=== PATIENT | female | born 1950 | race Caucasian/White ===

== ENCOUNTER → 2022-01-29 15:28 | Outpatient (CLI) | payer MEDICARE, OTHER, SELFPAY ==
[2022-01-29 17:44] LABS: C-Reactive Protein Quant < 0.5 mg/dL (<1.0)
[2022-01-29 17:47] LABS: Add Manual Diff / Slide Review NO; Basophils Absolute Auto 0 /uL (0-100); Basophils Percent Auto 0.6 % (0-2); Eosinophils Absolute Auto 0 /uL (0-450); Hematocrit 42.3 % (36-46); Hemoglobin 14.7 g/dL (12.0-16.0); Lymphocytes Absolute Auto 1200 /uL (1100-4500); Lymphocytes Percent Auto 23.7 % (25-40); Mean Corpuscular HGB Conc 34.6 % (30-36); Mean Corpuscular Hemoglobin 31.6 PG (26-34); Mean Corpuscular Volume 91.2 fL (80-100); Monocytes Absolute Auto 400 /uL (0-900); Monocytes Percent Auto 9.2 % (3-14); Neutrophils Absolute Auto 3200 /uL (1500-7000); Neutrophils Percent Auto 65.5 % (50-75); Platelet Count 244 X10^3/uL (150-400); Red Blood Cell Count 4.64 X10^6/uL (4.0-5.2); Red Cell Distribution Width 12.8 % (11.6-14.8); White Blood Cell Count 4.9 X10^3/uL (4.5-11.0)
[2022-01-29 18:11] LABS: Hemoglobin A1C% w Est Avg Glu 5.6 % (4.0-6.0)
[2022-01-29 18:14] LABS: Erythrocyte Sedimentation Rate 8 MM/HR (0-20)
[2022-01-29 18:25] LABS: Thyroid Stimulating Hormone 1.37 uIU/mL (0.47-4.68)
[2022-02-02 17:16] LABS: ANA Screen, IFA Negative (.)
== END ==
PROVIDERS: Referring Provider Ophthalmology; Visit Provider Ophthalmology
DX: H50.00 Unspecified esotropia (principal); I10 Essential (primary) hypertension; H53.2 Diplopia
CPT/HCPCS: 36415; 83036; 84443; 85025; 85651; 86038; 86140

== ENCOUNTER → 2022-06-27 13:12 | Outpatient (CLI) | payer MEDICARE, OTHER, SELFPAY | PROVIDERS: Family Provider Physician Assistant; PCP Physician Assistant; Visit Provider Registered Nurse | DX: N39.0 Urinary tract infection, site not specified (principal) | CPT/HCPCS: 87086 ==

== ENCOUNTER → 2022-09-18 13:29 | Outpatient (CLI) | payer MEDICARE, OTHER, SELFPAY ==
--- NOTE | 2022-09-18 13:34 | DI.MG.S_ITS ---
BILATERAL DIGITAL SCREENING MAMMOGRAM 3D/2D WITH CAD: 09/18/2022 CLINICAL: Routine screening. Personal history of left breast cancer. Comparison is made to exams dated: 03/19/2021 mammogram, 02/26/2020 mammogram, and 11/16/2018 mammogram - outside facility. There are scattered areas of fibroglandular density in both breasts (category b / 25%-50% glandular tissue). Current study was also evaluated with a Computer Aided Detection (CAD) system. There are benign post operative findings in the left breast. No significant masses, calcifications, or other findings are seen in either breast. There has been no significant interval change. IMPRESSION: BENIGN There is no mammographic evidence of malignancy. A 1 year screening mammogram is recommended. Based on the Tyrer Cuzick model (a risk assessment model) the patient's lifetime risk is 3.2% and her 10 year risk is 2.2%. According to the ACR, ACS, and NCCN guidelines, an annual breast MRI exam along with mammogram is recommended if the patient's lifetime risk is 20% or greater. This exam was interpreted at Station ID: [id number]. NOTE: For mammograms, a report in lay terms will be sent to the patient. Approximately 15% of breast malignancies will not be visualized mammographically. In the management of a palpable breast mass, a negative mammogram must not discourage biopsy of a clinically suspicious lesion. Electronically Signed By: Obinna paulino/odin:09/18/2022 20:19:32 letter sent: Normal Exam ACR BI-RADS Category 2: Benign Finding(s) 3342F
== END ==
PROVIDERS: Family Provider Physician Assistant; PCP Physician Assistant; Referring Provider Internal Medicine Hematology & Oncology; Visit Provider Internal Medicine Hematology & Oncology
DX: Z12.31 Encounter for screening mammogram for malignant neoplasm of breast (principal); C50.912 Malignant neoplasm of unspecified site of left female breast; Z17.0 Estrogen receptor positive status [ER+]
CPT/HCPCS: 77063; 77067

== ENCOUNTER → 2022-10-06 14:24 | Outpatient (CLI) | payer MEDICARE, OTHER, SELFPAY ==
--- NOTE | 2022-10-06 14:28 | DI.US.S_ITS ---
ULTRASOUND OF LEFT BREAST: 10/06/2022 CLINICAL: Left breast enlargement noticed in August 2022. Comparison is made to exams dated: 09/18/2022 mammogram - [facility], 08/05/2021 localization, 08/05/2021 specimen, 07/02/2021 breast MRI, 05/28/2021 breast MRI, and 05/22/2021 ultrasound biopsy - outside facility. Color flow and real-time ultrasound of the left breast were performed. House scale images of the real-time examination were reviewed. No significant abnormalities were seen sonographically in the left breast. No abnormal mass or fluid collections. Expected post surgical changes along the lateral aspect of the left breast at site of prior partial mastectomy. IMPRESSION: BENIGN There is no sonographic evidence of malignancy. There is no abnormality seen in the left breast to correspond with the area of clinical concern, however, recommend clinical follow up for persistent or worsening symptoms, or development of any clinically suspicious findings. A 1 year screening mammogram is recommended. Future imaging is recommended as follows: 09/19/2023 screening mammogram. Findings and recommendations were conveyed to the patient during today's evaluation. This exam was interpreted at Station ID: [id number]. Electronically Signed By: Obinna Anton M.D. aty/:10/06/2022 15:21:51 letter sent: Clinical Evaluation Ultrasound BI-RADS: 2 Benign
== END ==
PROVIDERS: Family Provider Physician Assistant; PCP Physician Assistant; Referring Provider Internal Medicine Hematology & Oncology; Visit Provider Internal Medicine Hematology & Oncology
DX: C50.912 Malignant neoplasm of unspecified site of left female breast (principal); N62 Hypertrophy of breast; Z17.0 Estrogen receptor positive status [ER+]
CPT/HCPCS: 76642

== ENCOUNTER → 2023-05-19 14:23 | Outpatient (CLI) | payer MEDICARE, OTHER, SELFPAY ==
--- NOTE | 2023-05-19 14:25 | DI.RAD.S_ITS ---
PROCEDURE: XR FINGER RT MIN 2V INDICATIONS: Right thumb pain, possible bite on thumb TECHNIQUE: AP hand, 2 views of the 1st finger(s) acquired. COMPARISON: None. FINDINGS: Bones: No fractures or dislocations. No suspicious bony lesions. Soft tissues: No suspicious soft tissue calcifications. IMPRESSION: Osteopenia without fracture Approved by: Corwin Carpenter M.D. on 05/19/2023 at 19:59
== END ==
PROVIDERS: Family Provider Physician Assistant; Referring Provider Nurse Practitioner Family; Visit Provider Nurse Practitioner Family
DX: M85.841 Other specified disorders of bone density and structure, right hand (principal); M79.644 Pain in right finger(s)
CPT/HCPCS: 73140

== ENCOUNTER 2023-07-23 13:42 | Emergency (ER) | payer MEDICARE, OTHER, SELFPAY ==
[2023-07-23 13:47] VITALS: BP 130/65; PULSE 84; RESP 18; TEMP 37.2; O2SAT 94; BMI 24.0
--- NOTE | 2023-07-23 13:56 | ED_ITS ---
HPI - Fall General Chief Complaint: Fall Stated Complaint: sent by wi/fall Time Seen by Provider: 07/23/23 13:55 Source: patient Mode of arrival: Ambulatory History of Present Illness HPI Narrative: This is a 72-year-old female presents to the emergency department due to a mechanical ground level fall 3 days ago. She states that she was walking along the floor when she was stuck and she landed falling to her knees hand front. She states that he was mild bilateral knee pain, bilateral elbow pain, left rib pain, and mid back pain. She is not on blood thinners. She would not hit lose conscious but does state that she did hit her head and feels a little ?dizzy?. She denies any abdominal pain, denies fevers, shortness of breath, chest pain, or any other concerning signs or symptoms. Related Data Home Medications Medication Instructions Recorded Confirmed cholecalciferol (vitamin D3) 125 125 mcg PO DAILY 05/04/22 05/19/23 mcg (5,000 unit) tablet (Vitamin D3) clindamycin phosphate 1 % topical 1 applic topical DAILY 05/04/22 05/19/23 gel ibandronate 150 mg tablet 150 mg PO QMONTH 05/04/22 05/19/23 levothyroxine 50 mcg tablet 50 mcg PO DAILY 05/04/22 05/19/23 loratadine 10 mg tablet 10 mg PO DAILY 05/04/22 05/19/23 multivitamin 1 tab PO DAILY 05/04/22 05/19/23 ascorbic acid (vitamin C) 1,000 mg 1,000 mg PO DAILY 11/02/22 05/19/23 tablet (Vitamin C) calcium 1,000 mg DAILY 11/02/22 05/19/23 Previous Rx's Medication Instructions Recorded letrozole 2.5 mg tablet 2.5 mg PO DAILY #90 tabs 01/04/23 Allergies Allergy/AdvReac Type Severity Reaction Status Date / Time epinephrine Allergy Anaphylaxis Verified 07/23/23 13:53 anastrozole AdvReac Headache Verified 07/23/23 13:53 interferon beta-1b AdvReac Verified 07/23/23 13:53 [From Betaseron] iodamide AdvReac Rash Verified 07/23/23 13:53 iodine AdvReac Rash Verified 07/23/23 13:53 omeprazole AdvReac Rash Verified 07/23/23 13:53 soy AdvReac Fatigued Verified 07/23/23 13:53 Review of Systems Review of Systems Narrative: GENERAL: Denies chills, fatigue, malaise, fever, sweats. HEENT: Denies sinus pain, ear pain, sore throat, difficulty swallowing, dizziness. RESPIRATORY: Denies dyspnea, cough, wheezing, hemoptysis, sputum. CARDIOVASCULAR: Denies chest pain, palpitations, orthopnea, edema, GASTROINTESTINAL: Denies nausea, vomiting, abdominal pain, diarrhea, constipation, melena. : Denies dysuria, frequency, incontinence, hematuria, urinary retention. MUSCULOSKELETAL: Midthoracic back pain, left rib pain, Bilateral knee and elbow pain, otherwise denies weakness, joint pain, or bony pain SKIN: Denies rash, skin lesions, or other NEUROLOGIC: Denies weakness, headache, numbness, change in speech, confusion, seizures, incoordination. PSYCHIATRIC: No concerning psychosocial issues. 12 point review of systems is negative except for those stated above Patient History Medical History HLD (hyperlipidemia) Multiple sclerosis Osteopoikilosis Subclinical hypothyroidism Surgical History History of hysterectomy Family History Brother Colon cancer Social History Smoking Status: Former smoker alcohol intake: former (5 glasses of wine per week) substance use type: does not use Smoking Status: Former smoker alcohol intake frequency: 0-2 drinks per day Substance Use Type: does not use Exam Narrative Exam Narrative: GENERAL: Well-developed patient, in mild distress. HEAD: Atraumatic. Normocephalic. EYES: Pupils equal round and reactive. Extraocular motions intact. No scleral icterus. No injection or drainage. ENT: Nose without bleeding, purulent drainage. Throat without erythema, tonsillar hypertrophy or exudate. Airway patent. NECK: Trachea midline. Mild tenderness to palpation upper thoracic in cervical spine. CARDIOVASCULAR: Regular rate and rhythm without murmurs, gallops, or rubs. RESPIRATORY: Clear to auscultation. Breath sounds equal bilaterally. No wheezes, rales, or rhonchi. GASTROINTESTINAL: Abdomen soft, non-tender, nondistended. EXTREMITIES: No tenderness to palpation to the bilateral elbows or knees no ecchymosis noted. She did have pain with palpation to the left ribs. BACK: Nontender without deformity or crepitance. No flank tenderness. NEURO: AOx3. Cranial nerves 2-12 intact. SKIN: No rash or erythema of visible areas Initial Vital Signs Initial Vital Signs: Vital Signs Temperature 99.0 F 07/23/23 13:47 Pulse Rate 84 07/23/23 13:47 Respiratory Rate 18 07/23/23 13:47 Blood Pressure 130/65 07/23/23 13:47 Pulse Oximetry 94 07/23/23 13:47 Oxygen Delivery Method Room Air 07/23/23 13:47 Course Orders Ordered: ED Orders 07/23/23 14:07 CT cervical spine wo con Stat CT head/brain wo con Stat XR ribs LT min 3V w CXR1V Stat XR thoracic spine 3V Stat Vital Signs Vital signs: Vital Signs - 8 hr 07/23/23 13:47 07/23/23 14:05 07/23/23 14:05 Temperature 99.0 F Pulse Rate 84 79 Respiratory Rate 18 Blood Pressure 130/65 149/71 H Pulse Oximetry 94 95 Oxygen Delivery Method Room Air Room Air 07/23/23 14:40 07/23/23 15:00 07/23/23 15:00 Temperature Pulse Rate 72 68 Respiratory Rate Blood Pressure 136/71 Pulse Oximetry 93 94 Oxygen Delivery Method Room Air MDM - Fall Imaging Data CT - cervical spine: Radiologist's Impression: Close Cervical Spine CT (Signed) Bianca Perezic - 07/23/[address] 07/23/23 Launch?[place] [address] CT Scan Report Signed Patient: Brittany Stephens MR#: [id number] : 1950 Acct:[id number] Age/Sex: 72 / F Date of Service: 07/23/23 Loc: ED Accession Number: [id number] Procedure: CT cervical spine wo con Ordering Provider: Elliott Almeida P.A-C PROCEDURE: CT CERVICAL SPINE WO CON INDICATIONS: C spine pain after fall TECHNIQUE: Noncontrast 3 mm thick sections acquired from the skull base to the T4 level. Sagittal and coronal reformats were then constructed. For radiation dose reduction, the following was used: automated exposure control, adjustment of mA and/or kV according to patient size. COMPARISON: None. FINDINGS: Image quality: Excellent. Bones: No fractures or dislocations. Visualized superior ribs are intact. Soft tissues: Prevertebral soft tissues are normal in thickness. No paravertebral hematomas. No apical pneumothoraces. IMPRESSION: No acute cervical fracture or dislocation. Dictated by: Jimmy Perez M.D. on 07/23/2023 at 14:30 Approved by: Jimmy Perez M.D. on 07/23/2023 at 14:31 CT scan - head: Radiologist's Impression: [address] [address] [address] Scan Report Signed Patient: Brittany Stephens MR#: [id number] : 1950 Acct:[id number] Age/Sex: 72 / F Date of Service: 07/23/23 Loc: ED Accession Number: [id number] Procedure: CT head/brain wo con Ordering Provider: Elliott Almeida P.A-C PROCEDURE: CT HEAD/BRAIN WO CON INDICATIONS: Fall and possible LOC 3 days ago TECHNIQUE: Noncontrast 4.5 mm thick angled axial sections acquired from the foramen magnum to the vertex, with coronal and sagittal reformats. For radiation dose reduction, the following was used: automated exposure control, adjustment of mA and/or kV according to patient size. COMPARISON: None. FINDINGS: Image quality: Excellent. CSF spaces: Basal cisterns are patent. No extra-axial fluid collections. The ventricles are symmetric in size and shape. Brain: No intracranial bleeds or masses. There is cerebral volume loss for age, with resultant ventricular and sulcal prominence. There are periventricular and deep white matter chronic small vessel ischemic changes. There is intracranial internal c arotid artery atherosclerosis. Skull and face: Calvarium and visualized facial bones appear intact, without suspicious lesions. Sinuses: Visualized sinuses and mastoids are clear. IMPRESSION: No acute intracranial process Dictated by: Jimmy Perez M.D. on 07/23/2023 at 14:31 Approved by: Jimmy Perez M.D. on 07/23/2023 at 14:32 L rib XR : Radiologist's Impression: [address] [address] XRay Report Signed Patient: Brittany Stephens MR#: [id number] : 1950 Acct:[id number] Age/Sex: 72 / F Date of Service: 07/23/23 Loc: ED Accession Number: [id number] Procedure: XR ribs LT min 3V w CXR1V Ordering Provider: Elliott Almeida P.A-C PROCEDURE: XR RIBS LT MIN 3V W CXR1V INDICATIONS: L rib pain TECHNIQUE: 2 views of the left ribs were acquired, along with a single view chest. COMPARISON: None. FINDINGS: Surgical changes and devices: None. Bones and chest wall: The bones are osteopenic. No displaced rib fractures are identified. Mild dextrocurvature. No suspicious bony lesions. Overlying soft tissues appear unremarkable. Lungs and pleura: No pleural effusions or pneumothorax. Lungs appear clear. Mediastinum: Mediastinal contours appear normal. Heart size is normal. IMPRESSION: No displaced rib fracture noted. No acute pulmonary process. Dictated by: Jimmy Perez M.D. on 07/23/2023 at 14:57 Approved by: Jimmy Perez M.D. on 07/23/2023 at 14:58 Thoracic XR: Radiologist's Impression: [place] [address] XRay Report Signed Patient: Brittany Stephens MR#: [id number] : 1950 Acct:[id number] Age/Sex: 72 / F Date of Service: 07/23/23 Loc: ED Accession Number: [id number] Procedure: XR thoracic spine 3V Ordering Provider: Elliott Almeida P.A-C PROCEDURE: XR THORACIC SPINE 3V INDICATIONS: Midline thoracic pain TECHNIQUE: 3 views of the thoracic spine were acquired. COMPARISON: None. FINDINGS: Bones: No fractures or dislocations. No suspicious bony lesions. 12 pairs of ribs are noted, and appear intact where visualized. Mild dextrocurvature. Soft tissues: No paravertebral stripe thickening. IMPRESSION: No evidence acute bony abnormality. Dictated by: Jimmy Perez M.D. on 07/23/2023 at 14:59 Approved by: Jimmy Perez M.D. on 07/23/2023 at 14:59 MDM Narrative Medical decision making narrative: MDM * differential diagnosis includes but not limited to rib fracture, spine fracture, intracranial bleed * Prior records reviewed: Patient was seen here 2 months ago in the walk-in clinic due to a right thumb pain. Complaining of swelling and difficulty with movement. History of multiple sclerosis, osteoporosis cheilosis. Thumb x-ray showed osteopenia without fracture. * My lab interpretation: None obtained * My imgaing interpretation: Head and neck CT negative. Left rib x-ray and chest x-ray negative. Thoracic spine x-ray negative * Clinical Decision Rules/Scores evaluated: None * Independent discussions with: None ED Course: This is a 72-year-old female presents to the emergency department after a mechanical ground level fall 3 days ago. She reports neck and thoracic and left rib pain on physical exam. Head and neck CT negative for fractures. Left rib x-ray negative. Chest x-ray negative. No other pain to address. She was not on blood thinners and sent report any significant other symptoms to address. Shared Decision Making: Discussed plan with the patient who is comfortable with the plan. Social Considerations: None Disposition: Discharged home Discharge Plan Departure Patient Disposition: Home Clinical Impression: Neck pain, Ground-level fall, Pain in rib Activity Restrictions/Additional Instructions: Thank you for coming to the [facility] Emergency Department today. Your head and neck CT were negative. There was no evidence of any fractures in your neck and no bleeding in your brain. The x-ray of your thoracic spine which is your mid back was negative for fractures. The left rib x-ray was also negative. This should improve with ibuprofen and Tylenol. I hope you feel better soon. Please follow up with your primary care provider within a week if your symptoms continue. If you do not have a primary care provider please contact the [facility] Resource line at [phone]. They will ask some questions about your medical history and help you get set up with a provider in the community. Prescriptions: No Action multivitamin Tablet 1 tab PO DAILY clindamycin phosphate 1 % Gel 1 applic TOPICAL DAILY levothyroxine 50 mcg Tablet 50 mcg PO DAILY loratadine 10 mg Tablet 10 mg PO DAILY ibandronate 150 mg Tablet 150 mg PO QMONTH cholecalciferol (vitamin D3) [Vitamin D3] 125 mcg (5,000 unit) Tablet 125 mcg PO DAILY ascorbic acid (vitamin C) [Vitamin C] 1,000 mg Tablet 1,000 mg PO DAILY calcium 1,000 mg DAILY letrozole 2.5 mg Tablet 2.5 mg PO DAILY Qty: 90 3RF Referrals: Miscellaneous,Doctor, MD [Primary Care Provider] - Stand Alone Forms: Patient Portal/API
[2023-07-23 14:05] VITALS: BP 149/71; PULSE 79; O2SAT 95
--- NOTE | 2023-07-23 14:07 | DI.CT.S_ITS ---
PROCEDURE: CT HEAD/BRAIN WO CON INDICATIONS: Fall and possible LOC 3 days ago TECHNIQUE: Noncontrast 4.5 mm thick angled axial sections acquired from the foramen magnum to the vertex, with coronal and sagittal reformats. For radiation dose reduction, the following was used: automated exposure control, adjustment of mA and/or kV according to patient size. COMPARISON: None. FINDINGS: Image quality: Excellent. CSF spaces: Basal cisterns are patent. No extra-axial fluid collections. The ventricles are symmetric in size and shape. Brain: No intracranial bleeds or masses. There is cerebral volume loss for age, with resultant ventricular and sulcal prominence. There are periventricular and deep white matter chronic small vessel ischemic changes. There is intracranial internal carotid artery atherosclerosis. Skull and face: Calvarium and visualized facial bones appear intact, without suspicious lesions. Sinuses: Visualized sinuses and mastoids are clear. IMPRESSION: No acute intracranial process Dictated by: Jimmy Perez M.D. on 07/23/2023 at 14:31 Approved by: Jimmy Perez M.D. on 07/23/2023 at 14:32
--- NOTE | 2023-07-23 14:07 | DI.RAD.S_ITS ---
PROCEDURE: XR THORACIC SPINE 3V INDICATIONS: Midline thoracic pain TECHNIQUE: 3 views of the thoracic spine were acquired. COMPARISON: None. FINDINGS: Bones: No fractures or dislocations. No suspicious bony lesions. 12 pairs of ribs are noted, and appear intact where visualized. Mild dextrocurvature. Soft tissues: No paravertebral stripe thickening. IMPRESSION: No evidence acute bony abnormality. Dictated by: Jimmy Perez M.D. on 07/23/2023 at 14:59 Approved by: Jimmy Perez M.D. on 07/23/2023 at 14:59
--- NOTE | 2023-07-23 14:07 | DI.CT.S_ITS ---
PROCEDURE: CT CERVICAL SPINE WO CON INDICATIONS: C spine pain after fall TECHNIQUE: Noncontrast 3 mm thick sections acquired from the skull base to the T4 level. Sagittal and coronal reformats were then constructed. For radiation dose reduction, the following was used: automated exposure control, adjustment of mA and/or kV according to patient size. COMPARISON: None. FINDINGS: Image quality: Excellent. Bones: No fractures or dislocations. Visualized superior ribs are intact. Soft tissues: Prevertebral soft tissues are normal in thickness. No paravertebral hematomas. No apical pneumothoraces. IMPRESSION: No acute cervical fracture or dislocation. Dictated by: Jimmy Perez M.D. on 07/23/2023 at 14:30 Approved by: Jimmy Perez M.D. on 07/23/2023 at 14:31
--- NOTE | 2023-07-23 14:07 | DI.RAD.S_ITS ---
PROCEDURE: XR RIBS LT MIN 3V W CXR1V INDICATIONS: L rib pain TECHNIQUE: 2 views of the left ribs were acquired, along with a single view chest. COMPARISON: None. FINDINGS: Surgical changes and devices: None. Bones and chest wall: The bones are osteopenic. No displaced rib fractures are identified. Mild dextrocurvature. No suspicious bony lesions. Overlying soft tissues appear unremarkable. Lungs and pleura: No pleural effusions or pneumothorax. Lungs appear clear. Mediastinum: Mediastinal contours appear normal. Heart size is normal. IMPRESSION: No displaced rib fracture noted. No acute pulmonary process. Dictated by: Jimmy Perez M.D. on 07/23/2023 at 14:57 Approved by: Jimmy Perez M.D. on 07/23/2023 at 14:58
[2023-07-23 14:40] VITALS: PULSE 72; O2SAT 93
[2023-07-23 15:00] VITALS: BP 136/71; PULSE 68; O2SAT 94
== END 2023-07-23 15:15 | disposition home or self-care (01) ==
PROVIDERS: Emergency Provider Physician Assistant Medical; Family Provider Physician Assistant
DX: M54.2 Cervicalgia (principal); M25.522 Pain in left elbow; M25.521 Pain in right elbow; R07.81 Pleurodynia; M54.6 Pain in thoracic spine; M25.562 Pain in left knee; M25.561 Pain in right knee; W18.30XA Fall on same level, unspecified, initial encounter
CPT/HCPCS: 70450; 71101; 72072; 72125; 99284

== ENCOUNTER → 2023-08-12 13:33 | Outpatient (CLI) | payer MEDICARE, OTHER, SELFPAY ==
[2023-08-12 15:54] LABS: Alanine Aminotransferase 17 IU/L (<35); Albumin 4.2 g/dL (3.5-5.0); Albumin Globulin Ratio 1.2 (1.0-2.8); Alkaline Phosphatase 85 U/L (38-126); Aspartate Aminotransferase 26 IU/L (14-36); BUN Creatinine Ratio 22.4 (6-22); Bilirubin Total 0.8 mg/dL (0.2-1.3); Blood Urea Nitrogen 17 mg/dL (7-17); Calcium 9.6 mg/dL (8.4-10.2); Carbon Dioxide 29 mmol/L (22-32); Chloride 101 mmol/L (98-107); Estimated Glomerular Filt Rate > 60 mL/min (>60); Globulin 3.4 g/dL (1.7-4.1); Glucose 96 mg/dL (80-110); HDL Cholesterol 50 mg/dL (40-60); HEMOLYSIS < 15 (0-50); Potassium 4.2 mmol/L (3.4-5.1); Sodium 137 mmol/L (137-145); Total Protein 7.6 g/dL (6.3-8.2); Triglycerides 197 mg/dL (35-150)
[2023-08-12 15:58] LABS: High Sensitivity CRP - Cardiac 3.2 mg/L (1.0-3.0)
[2023-08-12 16:05] LABS: Cholesterol 370 mg/dL (140-199); LDL Cholesterol Calculated 281 mg/dL (<100)
[2023-08-12 16:24] LABS: TSH w/ Reflex to FT4 1.76 uIU/mL (0.47-4.68)
== END ==
PROVIDERS: Family Provider Physician Assistant; PCP Family Medicine; Referring Provider Family Medicine; Visit Provider Family Medicine
DX: M81.0 Age-related osteoporosis without current pathological fracture (principal); E03.8 Other specified hypothyroidism; N95.1 Menopausal and female climacteric states; E78.5 Hyperlipidemia, unspecified
CPT/HCPCS: 36415; 80053; 80061; 84443; 86140

== ENCOUNTER → 2023-08-16 14:48 | Outpatient (CLI) | payer MEDICARE, OTHER, SELFPAY ==
[2023-08-16 15:52] LABS: Influenza A - CEPHEID Flu A NEGATIVE (NEGATIVE); Influenza B - CEPHEID Flu B NEGATIVE (NEGATIVE); Respiratory Syncytial Virus Negative (Negative)
[2023-08-16 16:49] LABS: COVID-19 CEPHEID 4-PLEX PCR Negative (Negative)
== END ==
PROVIDERS: Family Provider Physician Assistant; PCP Family Medicine; Visit Provider Nurse Practitioner Family
DX: R05.1 Acute cough (principal)
CPT/HCPCS: 0241U

== ENCOUNTER → 2023-09-16 | Outpatient (CLI) | payer MEDICARE, OTHER, SELFPAY ==
--- NOTE | 2023-09-16 11:02 | DI.RAD.S_ITS ---
Bone Density Report Name: JENY MEDINA Age: 72 Sex: Female Ethnicity: White Date of : 1950 Indication: postmenopausal; screening for osteoporosis; Referring Provider: ELEANOR ANGELO Study: Bone densitometry was performed. Exam Date: September 16, 2023 Accession number: [id number] Bone Density: Region BMD T-score Z-score Classification AP Spine(L1, L2, L4) 0.626 -3.7 -1.4 Osteoporosis Femoral Neck (Left) 0.431 -3.8 -1.8 Osteoporosis Total Hip (Left) 0.561 -3.1 -1.5 Osteoporosis Femoral Neck (Right) 0.373 -4.3 -2.3 Osteoporosis Total Hip (Right) 0.529 -3.4 -1.7 Osteoporosis Total Hip Mean 0.545 -3.3 -1.6 Osteoporosis World Health Organization criteria for BMD impression classify patients as: Normal (T-score at or above -1.0), Osteopenia (T-score between -1.0 and -2.5), or Osteoporosis (T-score at or below -2.5). 10-year Fracture Risk: FRAX not reported because: Some T-score for Spine Total or Hip Total or Femoral Neck at or below -2.5 Impression: The patient has osteoporosis, based on the Right Femoral Neck T-score. Discussion: HIGH RISK OF FRACTURE. BONE DENSITY IS UNDESIRABLY LOW AT ONE OR MORE SKELETAL SITES, CONSISTENT WITH OSTEOPOROSIS. ALSO, BONE DENSITY IS LOWER THAN EXPECTED FOR AGE AND SEX AT ONE OR MORE SKELETAL SITES; RECOMMEND A DILIGENT SEARCH FOR SECONDARY CAUSES OF BONE LOSS. This patient's lowest T-score meets the World Health Organization's (WHO) criteria for osteoporosis at one or more sites (T-score -2.5 or below). In untreated patients, the risk of osteoporotic fracture increases approximately two-fold for each 1.0 SD decrease in T-score. Low bone density is not the only risk factor for fracture; also consider factors such as patient's age, frailty or poor health, risk of falling, risk of injury, previous osteoporotic fracture, family history of osteoporosis, cigarette smoking, low body weight, etc. Not everyone with low bone mineral density has osteoporosis; osteomalacia and other metabolic bone disorders should also be considered. Patients who have osteoporosis should be evaluated for specific diseases and conditions (secondary causes) that may cause or contribute to bone loss. The [place] [employer] Clinical Endocrinologists (AACE) and National Osteoporosis Foundation (NOF) recommend pharmacologic intervention for all postmenopausal women whose T-score is in this range. Also, this patient's bone mineral density is below the range considered normal for healthy age-, sex-, and race-matched controls at least one site (Z-score -2.0 or below). This warrants careful evaluation for diseases and conditions that may contribute to accelerated bone loss. The patient should follow a healthful lifestyle (good nutrition with adequate calcium and vitamin D, and appropriate weight-bearing exercise). Follow-Up: Consider a repeat BMD and Vertebral Fracture Assessment (VFA) exam in 2 years or sooner if medically necessary, to reassess this patient's status. Reported by: BRUNA DALLAS M.D. on 09/16/2023 11:31:00 AM.
== END ==
PROVIDERS: Family Provider Physician Assistant; PCP Family Medicine; Referring Provider Family Medicine; Visit Provider Family Medicine
DX: M81.0 Age-related osteoporosis without current pathological fracture (principal); N95.1 Menopausal and female climacteric states; E03.8 Other specified hypothyroidism; E78.5 Hyperlipidemia, unspecified
CPT/HCPCS: 77080

== ENCOUNTER 2024-02-28 13:53 | Day surgery (SDC) | payer MEDICARE, OTHER, SELFPAY ==
[2024-02-28 14:22] VITALS: BP 130/70; PULSE 68; RESP 16; TEMP 36.2; O2SAT 94
[2024-02-28] MEDS: LACTATED RINGERS 1,000 ML 42 ML IV (14:29)
[2024-02-28 15:32] VITALS: BP 120/70; PULSE 70; RESP 16; TEMP 36.4; O2SAT 93
--- NOTE | 2024-02-28 15:32 | PM.OP.COLON ---
Operative Date/Time/Diagnoses Date of procedure: 02/28/24 Time of procedure: 15:32 Pre-op diagnosis: Rectal bleeding and history of colon polyps Post-op diagnosis: same Procedure & Clinicians Study performed: Colonoscopy Same procedure as scheduled: Yes Surgeon: Narinder Ibrahim Procedure Notes Procedure in detail: Surgeon: Nrainder Ibrahim MD Anesthesia: Roseanna Roque DO Procedure: The patient was brought to the endoscopy suite, placed in left lateral decubitus position. The patient was connected to monitoring devices. A time-out was performed. Sedation was administered. Once the patient was adequately sedated, a digital rectal exam was performed and was normal. The scope was then inserted and advanced to the cecum where the appendiceal orifice was identified and photographed. The scope was then slowly withdrawn over greater than 6 minutes. The mucosa was thoroughly inspected. No polyps were found. One small diverticulum was noted in the sigmoid colon. The scope was retroflexed in the rectum. Internal hemorrhoids were noted. The scope was straightened and removed. The patient was awakened and brought to recovery. Scope withdrawal time: 6 minutes Sedation time: 14 minutes EBL: 0 Findings: Rare sigmoid diverticula and internal hemorrhoids Post-procedure Disposition: PACU
[2024-02-28 15:37] VITALS: BP 112/68; PULSE 71; RESP 14; O2SAT 91
[2024-02-28 15:42] VITALS: BP 116/59; PULSE 69; RESP 15; O2SAT 93
[2024-02-28 15:47] VITALS: BP 121/61; PULSE 80; RESP 14; TEMP 36.9; O2SAT 95
[2024-02-28 16:00] VITALS: BP 131/63; PULSE 59; RESP 16; O2SAT 96
--- NOTE | 2024-02-28 16:10 | SUR.PHASEII ---
Pt states she is ready to go home and eat.
== END 2024-02-28 16:10 | disposition home or self-care (01) ==
PROVIDERS: Family Provider Physician Assistant; PCP Family Medicine; Referring Provider Surgery; Visit Provider Surgery
PROC: 0DJD8ZZ Inspection of Lower Intestinal Tract, Via Natural or Artificial Opening Endoscopic (ICD-10-PCS; CPT 45378; principal; 2024-02-28 14:45)
DX: K62.5 Hemorrhage of anus and rectum (principal); Z86.010 Personal history of colon polyps; Z80.0 Family history of malignant neoplasm of digestive organs; K57.30 Diverticulosis of large intestine without perforation or abscess without bleeding; K64.8 Other hemorrhoids
CPT/HCPCS: 45378; J2704

== ENCOUNTER → 2024-04-19 10:27 | Outpatient (CLI) | payer MEDICARE, OTHER, SELFPAY ==
[2024-04-19 12:37] LABS: Add Manual Diff / Slide Review NO; Basophils Absolute Auto 0 /uL (0-100); Basophils Percent Auto 0.5 % (0-2); Eosinophils Absolute Auto 100 /uL (0-450); Eosinophils Percent Auto 2.7 % (2-4); Hematocrit 42.4 % (36-46); Lymphocytes Absolute Auto 800 /uL (1100-4500); Lymphocytes Percent Auto 24.1 % (25-40); Mean Corpuscular HGB Conc 33.1 % (30-36); Mean Corpuscular Hemoglobin 30.6 PG (26-34); Mean Corpuscular Volume 92.6 fL (80-100); Monocytes Absolute Auto 400 /uL (0-900); Monocytes Percent Auto 11.2 % (3-14); Neutrophils Absolute Auto 2100 /uL (1500-7000); Neutrophils Percent Auto 61.5 % (50-75); Platelet Count 210 X10^3/uL (150-400); Red Blood Cell Count 4.58 X10^6/uL (4.0-5.2); Red Cell Distribution Width 13.1 % (11.6-14.8); White Blood Cell Count 3.3 X10^3/uL (4.5-11.0)
[2024-04-19 13:28] LABS: Ferritin 91 ng/mL (11-264)
[2024-04-19 14:15] LABS: Free T3, Triiodothyronine Free 3.33 pg/mL (2.77-5.27); Free T4, Direct Thyroxine 0.97 ng/dL (0.78-2.19)
[2024-04-19 14:28] LABS: Thyroid Stimulating Hormone 2.57 uIU/mL (0.47-4.68)
== END ==
PROVIDERS: Family Provider Physician Assistant; PCP Family Medicine; Referring Provider Family Medicine; Visit Provider Family Medicine
DX: L65.9 Nonscarring hair loss, unspecified (principal); R53.83 Other fatigue; R13.10 Dysphagia, unspecified
CPT/HCPCS: 36415; 82728; 84439; 84443; 84481; 85025

== ENCOUNTER → 2024-04-20 09:52 | Outpatient (CLI) | payer MEDICARE, OTHER, SELFPAY ==
--- NOTE | 2024-04-20 09:53 | DI.RAD.S_ITS ---
PROCEDURE: XR CERVICAL SPINE 2V OR 3V INDICATIONS: neck pain, UE weakness TECHNIQUE: 3 view(s) of the cervical spine were acquired. COMPARISON: None. FINDINGS: Bones: No fractures or dislocations to the T1 level. The lateral masses of C1 appear intact on the odontoid view. No suspicious bony lesions. Soft tissues: No prevertebral soft tissue swelling. Soft tissue calcifications consistent with carotid artery calcification in the neck bilaterally. IMPRESSION: No acute bony abnormality. Dictated by: Kris Bravo M.D. on 04/20/2024 at 13:28 Approved by: Kris Bravo M.D. on 04/20/2024 at 13:32
== END ==
PROVIDERS: Family Provider Physician Assistant; PCP Family Medicine; Referring Provider Family Medicine; Visit Provider Family Medicine
DX: M54.2 Cervicalgia (principal); R29.898 Other symptoms and signs involving the musculoskeletal system
CPT/HCPCS: 72040

== ENCOUNTER → 2024-04-25 13:29 | Outpatient (CLI) | payer MEDICARE, OTHER, SELFPAY ==
[2024-04-25 14:25] LABS: Add Manual Diff / Slide Review NO; Basophils Absolute Auto 0 /uL (0-100); Basophils Percent Auto 0.6 % (0-2); Eosinophils Absolute Auto 100 /uL (0-450); Eosinophils Percent Auto 2.4 % (2-4); Hematocrit 43.7 % (36-46); Hemoglobin 14.6 g/dL (12.0-16.0); Lymphocytes Absolute Auto 1100 /uL (1100-4500); Lymphocytes Percent Auto 31.1 % (25-40); Mean Corpuscular HGB Conc 33.4 % (30-36); Mean Corpuscular Hemoglobin 30.8 PG (26-34); Mean Corpuscular Volume 92.3 fL (80-100); Monocytes Absolute Auto 400 /uL (0-900); Neutrophils Absolute Auto 1900 /uL (1500-7000); Neutrophils Percent Auto 54.9 % (50-75); Platelet Count 234 X10^3/uL (150-400); Red Blood Cell Count 4.73 X10^6/uL (4.0-5.2); Red Cell Distribution Width 12.9 % (11.6-14.8); White Blood Cell Count 3.5 X10^3/uL (4.5-11.0)
[2024-04-25 14:41] LABS: Alanine Aminotransferase 13 IU/L (<35); Albumin 4.3 g/dL (3.5-5.0); Albumin Globulin Ratio 1.5 (1.0-2.8); Alkaline Phosphatase 75 U/L (38-126); Aspartate Aminotransferase 23 IU/L (14-36); BUN Creatinine Ratio 22.9 (6-22); Bilirubin Total 0.6 mg/dL (0.2-1.3); Blood Urea Nitrogen 19 mg/dL (7-17); Calcium 9.5 mg/dL (8.4-10.2); Carbon Dioxide 30 mmol/L (22-32); Chloride 104 mmol/L (98-107); Estimated Glomerular Filt Rate > 60 mL/min (>60); Globulin 2.9 g/dL (1.7-4.1); Glucose 102 mg/dL (80-110); HEMOLYSIS < 15 (0-50); Potassium 4.2 mmol/L (3.4-5.1); Sodium 140 mmol/L (137-145); Total Protein 7.2 g/dL (6.3-8.2)
[2024-04-25 15:22] LABS: TSH w/ Reflex to FT4 1.85 uIU/mL (0.47-4.68)
== END ==
LOC: LAB 13:31
PROVIDERS: Family Provider Physician Assistant; PCP Family Medicine; Referring Provider Internal Medicine Hematology & Oncology; Visit Provider Internal Medicine Hematology & Oncology
DX: R53.83 Other fatigue (principal); C50.412 Malignant neoplasm of upper-outer quadrant of left female breast; Z17.0 Estrogen receptor positive status [ER+]; E03.8 Other specified hypothyroidism
CPT/HCPCS: 36415; 80053; 84443; 85025

== ENCOUNTER → 2024-06-21 15:36 | Outpatient (CLI) | payer MEDICARE, OTHER, SELFPAY ==
[2024-06-21 19:16] LABS: Thyroid Stimulating Hormone 2.27 uIU/mL (0.47-4.68)
== END ==
PROVIDERS: Family Provider Physician Assistant; PCP Family Medicine; Referring Provider Family Medicine; Visit Provider Family Medicine
DX: E03.8 Other specified hypothyroidism (principal)
CPT/HCPCS: 84443

== ENCOUNTER → 2024-10-18 12:17 | Outpatient (CLI) | payer MEDICARE, OTHER, SELFPAY ==
[2024-10-18 12:59] LABS: HDL Cholesterol 58 mg/dL (40-60); Triglycerides 266 mg/dL (35-150)
[2024-10-18 13:09] LABS: Cholesterol 387 mg/dL (140-199); LDL Cholesterol Calculated 276 mg/dL (<100)
[2024-10-18 13:27] LABS: TSH w/ Reflex to FT4 2.56 uIU/mL (0.47-4.68)
== END ==
LOC: LAB 12:21
PROVIDERS: PCP Family Medicine; Referring Provider Family Medicine; Visit Provider Family Medicine
DX: M81.0 Age-related osteoporosis without current pathological fracture (principal); E78.5 Hyperlipidemia, unspecified; E03.8 Other specified hypothyroidism
CPT/HCPCS: 36415; 80061; 84443

== ENCOUNTER 2025-04-14 14:22 | Emergency (ER) | payer MEDICARE, OTHER, SELFPAY ==
[2025-04-14 14:32] VITALS: BP 146/65; PULSE 68; RESP 17; TEMP 36.6; O2SAT 96; BMI 22.8
--- NOTE | 2025-04-14 14:37 | DI.RAD.S_ITS ---
PROCEDURE: XR RIBS RT MIN 3V W CXR 1V INDICATIONS: right lower anterior rib injury TECHNIQUE: 2 views of the ribs were acquired, along with a single view chest. COMPARISON: [facility], [place], XR RIBS LT MIN 3V W CXR1V, 07/23/2023, 14:23. FINDINGS: Surgical changes and devices: None. Bones and chest wall: Mildly displaced rib fractures can be seen involving the right lateral 4th through 6th ribs. Generalized degenerative changes are seen. No significant soft tissue abnormality is seen. Lungs and pleura: No pleural effusions or pneumothorax. Lungs appear clear. Mediastinum: Mediastinal contours appear normal. Heart size is normal. IMPRESSION: Mildly displaced right rib fractures, without pneumothorax seen. If it would be helpful for clinical management decision making in this patient with this given history, please consider a dedicated follow-up chest CT with IV contrast for further evaluation. Dictated by: Raffy Saleh M.D. on 04/14/2025 at 14:34 Approved by: Raffy Saleh M.D. on 04/14/2025 at 14:36
--- NOTE | 2025-04-14 15:47 | ED.CHESTPAIN ---
HPI - Chest Pain General Chief Complaint: Chest Pain Stated Complaint: Fall-hit RT side on decking 3days ago; pain worse Time Seen by Provider: 04/14/25 15:05 Source: patient Mode of arrival: Ambulatory History of Present Illness HPI narrative: Ms. Soto is a very pleasant 74-year-old female with a past medical history of breast cancer s/p lumpectomy and chemotherapy, hypothyroidism, osteoporosis who presents to the emergency department for right rib pain after a fall that occurred 3 days ago. Patient states that she was walking on a deck about 3 days ago, with her arms full in the attempting to water cook when she tripped and fell forward and the right side of her ribcage hit the edge of the deck. She did not strike her head. There was no loss of consciousness. She did not injure anything else except for the right anterior lateral ribcage. She figured that she just bruised herself so she continued on with her normal daily activities over the last 3 days, but after doing a significant amount of cleaning and laundry yesterday she noticed that her right ribcage pain was actually getting worse. She does not have any open wounds or bruising. No substernal chest pain, abdominal pain, nausea, vomiting, diarrhea, constipation, dysuria, hematuria. No anticoagulation except for baby aspirin. Related Data Home Medications ?Medication ?Instructions ?Recorded ?Confirmed cholecalciferol (vitamin D3) 125 125 mcg PO DAILY 05/04/22 10/11/24 mcg (5,000 unit) tablet (Vitamin D3) loratadine 10 mg tablet 10 mg PO DAILY 05/04/22 10/11/24 multivitamin 1 tab PO DAILY 05/04/22 10/11/24 Calcium + D3 1,000 mg PO DAILY 08/10/23 10/11/24 ascorbic acid (vitamin C) 1,000 mg 1,000 mg PO BID 08/10/23 10/11/24 tablet (Vitamin C) clindamycin phosphate 1 % topical 1 applic topical DAILY PRN Acne 08/10/23 10/11/24 gel magnesium PO DAILY 08/10/23 10/11/24 Previous Rx's ?Medication ?Instructions ?Recorded letrozole 2.5 mg tablet 2.5 mg PO DAILY #90 tabs 01/04/23 levothyroxine 50 mcg tablet 50 mcg PO DAILY #90 tabs 09/12/24 levothyroxine 75 mcg tablet 75 mcg PO .week #52 tabs 09/12/24 hydrocodone 5 mg-acetaminophen 325 1 tab PO Q4-6H PRN pain #12 tabs 04/14/25 mg tablet Allergies Allergy/AdvReac Type Severity Reaction Status Date / Time epinephrine Allergy Anaphylaxis Verified 04/14/25 14:32 anastrozole AdvReac Headache Verified 04/14/25 14:32 interferon beta-1b (From AdvReac Verified 04/14/25 14:32 Betaseron) iodamide AdvReac Rash Verified 04/14/25 14:32 iodine AdvReac Rash Verified 04/14/25 14:32 omeprazole AdvReac Rash Verified 04/14/25 14:32 soy AdvReac Fatigued Verified 04/14/25 14:32 Review of Systems Review of Systems ROS Unobtainable: All systems reviewed & are unremarkable except as noted in HPI and below Patient History Medical History Cardiac murmur (~2011) Endometriosis Vision disorder Hearing decreased Psoriasis (~2004) Allergies (~1964) Osteoporosis Mumps Measles Chicken pox Subclinical hypothyroidism Osteopoikilosis HLD (hyperlipidemia) Multiple sclerosis (~1986) Surgical History Anesthesia History of ankle surgery Status post laparoscopic surgery (~1978) History of hysterectomy Family History Brother Colon cancer Father History of heart disease Grandfather Stroke Social History alcohol intake: former substance use type: does not use Smoking Status: Never smoker alcohol intake frequency: 0-2 drinks per day Exam Narrative Exam Narrative: GENERAL: 74 year old patient appears stated age. Well-developed patient, in no acute distress. HEAD: Atraumatic. Normocephalic. EYES: No scleral icterus. No injection or drainage. ENT: Nose without bleeding. Airway patent. NECK: Trachea midline. Cervical ROM intact. No midline cervical tenderness. CARDIOVASCULAR: Regular rate and rhythm. There is tenderness to palpation over the anterior right mid ribcage region just below right breast with no deformities, no ecchymosis. RESPIRATORY: ?Nonlabored respirations. ?Speaking in clear, full sentences. ?Clear to auscultation. Breath sounds equal bilaterally. No wheezes, rales, or rhonchi. ? GASTROINTESTINAL: Abdomen soft, non-tender, nondistended. No bruising. EXTREMITIES: No lower extremity edema. No tenderness to palpation of upper or lower extremities. BACK: Nontender without deformity or crepitance. No flank tenderness. NEURO: AOx3. ?Clear speech. ?Moves all 4 extremities appropriately. Ambulates independently. SKIN: No rash or erythema of visible areas Initial Vital Signs Initial Vital Signs: Vital Signs Temperature 98 F 04/14/25 14:32 Pulse Rate 68 04/14/25 14:32 Respiratory Rate 17 04/14/25 14:32 Blood Pressure 146/65 H 04/14/25 14:32 Pulse Oximetry 96 04/14/25 14:32 Oxygen Delivery Method Room Air 04/14/25 14:32 Course Orders Ordered: ED Orders 04/14/25 14:37 XR ribs RT min 3V w CXR1V Stat Discontinued Medications Hydrocodone Bitart/Acetaminophen (Hydrocodone/Acet 5/325 Tablet) 1 tab PO NOW ONE Stop: 04/14/25 16:03 Last Admin: 04/14/25 16:31 Dose: 1 tab Vital Signs Vital signs: Vital Signs - 8 hr 04/14/25 14:32 Temperature 98 F Pulse Rate 68 Respiratory Rate 17 Blood Pressure 146/65 H Pulse Oximetry 96 Oxygen Delivery Method Room Air MDM - Chest Pain Medical Records Data Attestation: I reviewed the patient's medical records. Imaging Data Chest & Right Ribs XR: Radiologist's Impression: PROCEDURE: XR RIBS RT MIN 3V W CXR 1V INDICATIONS: right lower anterior rib injury TECHNIQUE: 2 views of the ribs were acquired, along with a single view chest. COMPARISON: [facility], [place], XR RIBS LT MIN 3V W CXR1V, 07/23/2023, 14:23. FINDINGS: Surgical changes and devices: None. Bones and chest wall: Mildly displaced rib fractures can be seen involving the right lateral 4th through 6th ribs. Generalized degenerative changes are seen. No significant soft tissue abnormality is seen. Lungs and pleura: No pleural effusions or pneumothorax. Lungs appear clear. Mediastinum: Mediastinal contours appear normal. Heart size is normal. IMPRESSION: Mildly displaced right rib fractures, without pneumothorax seen. If it would be helpful for clinical management decision making in this patient with this given history, please consider a dedicated follow-up chest CT with IV contrast for further evaluation. Dictated by: Raffy Salhe M.D. on 04/14/2025 at 14:34 Approved by: Raffy Saleh M.D. on 04/14/2025 at 14:36 MDM Narrative Medical decision making narrative: 74-year-old female with a past medical history of breast cancer s/p lumpectomy and chemotherapy, hypothyroidism, osteoporosis who presents to the emergency department for right rib pain after a fall that occurred 3 days ago. No head strike, no LOC, no anticoagulation. Differential diagnosis includes but is not limited to right rib fractures, contusion, pneumothorax, etc. On exam the patient is in no acute distress, nontoxic-appearing, all vital signs within normal limits, lungs clear to auscultation bilaterally. She is focal tenderness to palpation of the right anterior lateral mid ribcage with no deformities, flail chest or bruising. X-ray chest and right ribs obtained in triage. X-ray does reveal mildly displaced rib fractures involving the right lateral 4th through 6th ribs. There is no pneumothorax. Patient is not having any abdominal pain or tenderness to suggest solid organ injury at this time. She has having no difficulty breathing. Recommended supportive care with pain control using hydrocodone in addition to Tylenol, incentive spirometry. Advised prompt follow up with the PCP, strict ED return precautions, avoidance of exacerbating movements. Patient and her verbalized understanding of all information and are agreeable to this plan. Discussed risks of narcotic pain medications. They verbalized understanding of all information agreeable with the plan, she is stable for discharge home. Discharge Plan Departure Patient Disposition: Home Clinical Impression: Fracture of right fourth rib, Fracture of right fifth rib, Fracture of right sixth rib Fall Qualifiers: Encounter type: initial encounter Qualified Code(s): W19.XXXA - Unspecified fall, initial encounter Instructions: DI for Rib Fracture Activity Restrictions/Additional Instructions: Dear Ms. Soto, Thank you for coming to the emergency department. Today you were evaluated for right-sided rib pain after a fall. Your x-ray revealed mildly displaced fractures of the right 4th, 5th, 6th ribs. It is very important to use your incentive spirometer to encourage deep breathing to prevent pneumonia while your rib fractures are healing. You may use Tylenol for pain in addition to the prescribed hydrocodone Tylenol if needed for severe breakthrough pain. Please follow up with your primary care doctor for further management and to assure proper healing. Please return to the emergency department if you develop severe pain, difficulty breathing, fevers or any other concerns. Please follow up with your primary care doctor within the next 2-3 days for ER follow-up. (If you do not have a PCP you can call [phone]. ?to schedule an appointment with an [facility] Primary Care Provider) IF YOU DEVELOP ANY NEW OR WORSENING SYMPTOMS, RETURN TO THE ER! Please read the attached instructions, they highlight more specific treatments and interventions for you at home. Thank you for letting me participate in your care, Mell Alfaro PA-C Prescriptions: New hydrocodone-acetaminophen 5-325 mg tablet 1 tab PO Q4-6H PRN (Reason: pain) Qty: 12 0RF No Action levothyroxine 75 mcg tablet 75 mcg PO .week Qty: 52 0RF Rx Instructions: Take weekly, the other days take 50mcg levothyroxine 50 mcg tablet 50 mcg PO DAILY Qty: 90 3RF Rx Instructions: Take daily, except the 1 day/wk that you take the 75mcg magnesium capsule PO DAILY Rx Instructions: 400mg daily multivitamin Tablet 1 tab PO DAILY loratadine 10 mg Tablet 10 mg PO DAILY Vitamin D3 125 mcg (5,000 unit) Tablet 125 mcg PO DAILY letrozole 2.5 mg Tablet 2.5 mg PO DAILY Qty: 90 3RF ascorbic acid (vitamin C) [Vitamin C] 1,000 mg tablet 1,000 mg PO BID Calcium + D3 1,000 mg PO DAILY clindamycin phosphate 1 % gel 1 applic TOPICAL DAILY PRN (Reason: Acne) Referrals: Dena Das DO [Primary Care Provider, Medical] Stand Alone Forms: Patient Portal/API
[2025-04-14] MEDS: HYDROCODONE/ACET 5/325 TABLET 1 TAB PO (16:31)
== END 2025-04-14 16:45 | disposition home or self-care (01) ==
PROVIDERS: Emergency Provider Physician Assistant; PCP Family Medicine
DX: S22.41XA Multiple fractures of ribs, right side, initial encounter for closed fracture (principal); W01.0XXA Fall on same level from slipping, tripping and stumbling without subsequent striking against object, initial encounter
CPT/HCPCS: 71101; 99283